=== PATIENT | female | born 1970 | race African-American/Black ===

== ENCOUNTER 2021-01-26 15:38 | Inpatient (IN) | payer MEDICAID ==
[~2021-01-26] VITALS: Ht 160 cm; Wt 142.9 kg
[~2021-01-26 15:38] MED LIST: METFORMIN
[2021-01-26] MEDS ORDERED: ACETAMINOPHEN 325MG TABLET PO ONE (18:30)
[2021-01-26 19:17] LABS: BASOPHILS % 0.7 % (0.0-2.0); EOSINOPHILS % 1.6 % (0.0-5.0); HEMATOCRIT. 46.6 % (36.0-48.0); HEMOGLOBIN. 14.8 g/dL (12.0-16.0); LYMPHOCYTES % 26.5 % (20.0-50.0); MEAN CORPUSCULAR VOLUME 78.9 fL (81.0-99.0); MEAN PLATELET VOLUME 8.8 fl (7.4-10.4); MONOCYTES % 5.5 % (2.0-8.0); NEUTROPHILS % 65.7 % (40.0-76.0); PLATELET 242 x1000/uL (130-400); RED BLOOD CELL COUNT 5.91 mill/uL (4.2-5.4); RED CELL DISTRIBUTION WIDTH 15.5 % (11.6-14.6)
[2021-01-26 19:25] LABS: CHLORIDE 110 mEq/L (98-107)
[2021-01-26 19:28] LABS: D-DIMER 2.33 mg/L FEU (<0.50); PARTIAL THROMBOPLASTIN TIME 28.8 sec (23.4-31.0); PROTHROMBIN TIME 10.8 sec (9.6-11.0)
[2021-01-26] MEDS ORDERED: ENOXAPARIN 120MG/0.8ML SYR SUBCUT ONE (20:00)
[2021-01-26 23:50] VITALS: BP 198/96
[2021-01-27] VITALS (7 sets, daily range): BP systolic 130–197; BP diastolic 48–111
[2021-01-27] MEDS ORDERED: CLON0.1T PO (00:41)
[2021-01-27] MEDS ORDERED: HYDR50TA PO (00:41)
[2021-01-27] MEDS ORDERED: ATOR40TA70 PO (00:41)
[2021-01-27] MEDS ORDERED: ASPI-986 PO (00:41)
[2021-01-27] MEDS ORDERED: ASPI-986 MT (00:41)
[2021-01-27] MEDS ORDERED: LABE200T9 PO (00:41)
[2021-01-27] MEDS ORDERED: DEXTROSE 50% WATER 50ML SYRINGE IV PRN ×2 (01:00)
[2021-01-27] MEDS ORDERED: NALOXONE HCL 0.4MG/ML VIAL IV PRN (02:00)
[2021-01-27] MEDS ORDERED: *PATIENT'S OWN MEDICATION STORAGE XX SCH (06:15)
[2021-01-27] MEDS ORDERED: BLOOD SUGAR DIAGNOSTIC STRIP TEST SCH (07:20)
[2021-01-27] MEDS: BLOOD SUGAR DIAGNOSTIC STRIP TEST SCH ×4 (07:45→21:38)
[2021-01-27] MEDS: INSULIN LISPRO 100 UNITS/ML SUBCUT SCH ×4 (07:46→21:00)
[2021-01-27 08:36] LABS: BASOPHILS % 1.2 % (0.0-2.0); HEMATOCRIT. 39.8 % (36.0-48.0); HEMOGLOBIN. 12.8 g/dL (12.0-16.0); LYMPHOCYTES % 32.3 % (20.0-50.0); MEAN CORPUSCULAR HEMOGLOBIN 25.4 pg (28.0-32.0); MEAN CORPUSCULAR VOLUME 78.7 fL (81.0-99.0); MEAN PLATELET VOLUME 9.2 fl (7.4-10.4); MONOCYTES % 7.8 % (2.0-8.0); NEUTROPHILS % 55.7 % (40.0-76.0); PLATELET 219 x1000/uL (130-400); RED BLOOD CELL COUNT 5.06 mill/uL (4.2-5.4); RED CELL DISTRIBUTION WIDTH 15.2 % (11.6-14.6)
[2021-01-27] MEDS: METOPROLOL TARTRATE 50MG TABLET PO SCH ×2 (08:36→21:37)
[2021-01-27] MEDS: AMLODIPINE 10MG TABLET PO SCH (08:36)
[2021-01-27] MEDS: ASPIRIN 81MG TABLET PO SCH (08:36)
[2021-01-27 08:57] LABS: CHLORIDE 109 mEq/L (98-107)
[2021-01-27] MEDS ORDERED: LISINOPRIL 20MG TABLET PO SCH (09:00)
[2021-01-27] MEDS ORDERED: METFORMIN HCL 500MG TABLET PO ONE (09:00)
[2021-01-27 09:04] LABS: LDL CHOLESTEROL 71 mg/dL (5-100)
[2021-01-27 09:05] LABS: HDL CHOLESTEROL 53 mg/dL (40-59)
[2021-01-27] MEDS: HYDROCODONE/ACETAMINOPHEN 5/325MG TABLET PO PRN (11:21)
[2021-01-27] MEDS: HYDRALAZINE HCL 100MG TABLET PO SCH ×2 (11:38→21:37)
[2021-01-27] MEDS ORDERED: CLONIDINE 0.1MG TABLET PO PRN ×2 (12:30→13:15)
[2021-01-27] MEDS: CLONIDINE 0.1MG TABLET PO SCH ×2 (13:54→21:37)
[2021-01-27] MEDS ORDERED: ENOXAPARIN 100MG/ML SYR SUBCUT NR (17:00)
[2021-01-27] MEDS: LISINOPRIL 20MG TABLET PO SCH (17:03)
[2021-01-27] MEDS: NITROGLYCERIN OINT 1GM/INCH UDPKT TD SCH (17:04)
[2021-01-27] MEDS ORDERED: ENOXAPARIN 40MG/0.4ML SYR SUBCUT SCH (18:00)
[2021-01-27] MEDS: ATORVASTATIN CALCIUM 40MG TABLET PO SCH (21:38)
[2021-01-27] MEDS: INSULIN GLARGINE UD 100 UNITS/ML SYR SUBCUT SCH (21:45)
[2021-01-28] VITALS (8 sets, daily range): BP systolic 109–157; BP diastolic 52–78
[2021-01-28] MEDS: NITROGLYCERIN OINT 1GM/INCH UDPKT TD SCH ×5 (00:56→23:32)
[2021-01-28 04:25] LABS: *AMPHETAMINES SCREEN URINE NEGATIVE (NEGATIVE); *BARBITURATES SCREEN URINE NEGATIVE (NEGATIVE); *BENZODIAZEPINES SCREEN URINE NEGATIVE (NEGATIVE); *COCAINE SCREEN URINE NEGATIVE (NEGATIVE); METHADONE URINE SCREEN NEGATIVE (NEGATIVE); OPIATES URINE SCREEN PRESUMTIVE POSITIVE (NEGATIVE)
[2021-01-28 04:26] LABS: CANNABINOID URINE SCREEN NEGATIVE (NEGATIVE); PHENCYCLIDINE URINE SCREEN NEGATIVE (NEGATIVE)
[2021-01-28] MEDS: BLOOD SUGAR DIAGNOSTIC STRIP TEST SCH ×4 (06:23→21:32)
[2021-01-28] MEDS: HYDRALAZINE HCL 100MG TABLET PO SCH ×3 (06:23→21:31)
[2021-01-28] MEDS: CLONIDINE 0.1MG TABLET PO SCH ×3 (06:23→21:32)
[2021-01-28] MEDS: INSULIN LISPRO 100 UNITS/ML SUBCUT SCH ×4 (07:26→21:36)
[2021-01-28 07:29] LABS: EOSINOPHILS % 3.5 % (0.0-5.0); HEMATOCRIT. 40.6 % (36.0-48.0); HEMOGLOBIN. 12.9 g/dL (12.0-16.0); LYMPHOCYTES % 35.7 % (20.0-50.0); MEAN CORPUSCULAR VOLUME 78.9 fL (81.0-99.0); MEAN PLATELET VOLUME 8.8 fl (7.4-10.4); MONOCYTES % 6.6 % (2.0-8.0); NEUTROPHILS % 53.2 % (40.0-76.0); PLATELET 249 x1000/uL (130-400); RED BLOOD CELL COUNT 5.14 mill/uL (4.2-5.4); RED CELL DISTRIBUTION WIDTH 15.5 % (11.6-14.6)
[2021-01-28 08:08] LABS: CHLORIDE 108 mEq/L (98-107)
[2021-01-28 08:18] LABS: CREATINE KINASE 111 IU/L (26-192)
[2021-01-28] MEDS: METOPROLOL TARTRATE 50MG TABLET PO SCH ×2 (08:22→21:32)
[2021-01-28 08:23] LABS: CREATINE KINASE MB FRACTION < 1.0 ng/mL (0.5-3.6)
[2021-01-28] MEDS: AMLODIPINE 10MG TABLET PO SCH (08:23)
[2021-01-28] MEDS: ASPIRIN 81MG TABLET PO SCH ×2 (08:23→09:40)
[2021-01-28] MEDS: LISINOPRIL 20MG TABLET PO SCH ×2 (08:23→21:32)
[2021-01-28] MEDS ORDERED: ENOXAPARIN 100MG/ML SYR SUBCUT NR (17:00)
[2021-01-28] MEDS: ATORVASTATIN CALCIUM 40MG TABLET PO SCH (21:31)
[2021-01-28] MEDS: INSULIN GLARGINE UD 100 UNITS/ML SYR SUBCUT SCH (21:36)
[2021-01-29] VITALS (7 sets, daily range): BP systolic 104–150; BP diastolic 52–66
[2021-01-29] MEDS: HYDRALAZINE HCL 100MG TABLET PO SCH ×3 (05:55→21:55)
[2021-01-29] MEDS: CLONIDINE 0.1MG TABLET PO SCH ×3 (05:55→21:54)
[2021-01-29] MEDS: BLOOD SUGAR DIAGNOSTIC STRIP TEST SCH ×4 (05:57→21:55)
[2021-01-29] MEDS: NITROGLYCERIN OINT 1GM/INCH UDPKT TD SCH ×4 (05:57→23:49)
[2021-01-29 06:33] LABS: BASOPHILS % 0.8 % (0.0-2.0); EOSINOPHILS % 2.4 % (0.0-5.0); HEMATOCRIT. 37.1 % (36.0-48.0); MEAN CORPUSCULAR HEMOGLOBIN 25.8 pg (28.0-32.0); MEAN CORPUSCULAR VOLUME 79.5 fL (81.0-99.0); MEAN PLATELET VOLUME 9.2 fl (7.4-10.4); MONOCYTES % 8.4 % (2.0-8.0); NEUTROPHILS % 66.4 % (40.0-76.0); PLATELET 218 x1000/uL (130-400); RED BLOOD CELL COUNT 4.67 mill/uL (4.2-5.4); RED CELL DISTRIBUTION WIDTH 15.2 % (11.6-14.6)
[2021-01-29] MEDS: AMLODIPINE 10MG TABLET PO SCH (07:47)
[2021-01-29] MEDS: LISINOPRIL 20MG TABLET PO SCH (07:47)
[2021-01-29] MEDS: ASPIRIN 81MG TABLET PO SCH (07:47)
[2021-01-29] MEDS: INSULIN LISPRO 100 UNITS/ML SUBCUT SCH ×4 (07:47→21:54)
[2021-01-29] MEDS: METOPROLOL TARTRATE 50MG TABLET PO SCH ×2 (07:47→21:55)
[2021-01-29] MEDS ORDERED: LIDOCAINE HCL 1% 10 MG/ML 10ML VIAL ONE (07:48)
[2021-01-29] MEDS ORDERED: IODIXANOL 320MG/ML 100 ML BOTTLE IV ONE (07:48)
[2021-01-29] MEDS ORDERED: ASPIRIN/SOD BICARB/CITRIC ACID 324MG TAB EFF ONE (07:48)
[2021-01-29] MEDS ORDERED: MIDAZOLAM HCL 2 MG/2 ML VIAL ONE (08:06)
[2021-01-29] MEDS ORDERED: FENTANYL CITRATE/PF 50MCG/ML 2ML VIAL ONE (08:06)
[2021-01-29] MEDS ORDERED: HEPARIN SODIUM 1,000 UNIT/1ML VIAL IV ONE (08:11)
[2021-01-29] MEDS ORDERED: NITROGLYCERIN 50MCG/ML 10ML VIAL (CATH LAB) IV ONE (08:11)
[2021-01-29] MEDS ORDERED: NICARDIPINE 100MCG/ML 10ML VIAL (CATH LAB) IV ONE (08:11)
[2021-01-29] MEDS ORDERED: MORPHINE SULFATE 2 MG/ML CPJ (NOT FOR IM USE) IV PRN (08:45)
[2021-01-29] MEDS ORDERED: ONDANSETRON HCL 4MG/2ML INJ IV PRN (08:45)
[2021-01-29] MEDS ORDERED: ACETAMINOPHEN 325MG TABLET PO PRN (08:45)
[2021-01-29] MEDS ORDERED: ATROPINE SULFATE 1MG/10ML SYR IV PRN (08:45)
[2021-01-29] MEDS ORDERED: SODIUM CHLORIDE 0.45% 1,000 ML IV ONE (08:45)
[2021-01-29] MEDS: HYDROCODONE/ACETAMINOPHEN 5/325MG TABLET PO PRN ×2 (18:20→23:48)
[2021-01-29] MEDS: ATORVASTATIN CALCIUM 40MG TABLET PO SCH (21:52)
[2021-01-29] MEDS: INSULIN GLARGINE UD 100 UNITS/ML SYR SUBCUT SCH (21:54)
[2021-01-30 04:00] VITALS: BP 136/70
[2021-01-30] MEDS: HYDROCODONE/ACETAMINOPHEN 5/325MG TABLET PO PRN (06:12)
[2021-01-30] MEDS: CLONIDINE 0.1MG TABLET PO SCH (06:12)
[2021-01-30] MEDS: HYDRALAZINE HCL 100MG TABLET PO SCH (06:12)
[2021-01-30] MEDS: NITROGLYCERIN OINT 1GM/INCH UDPKT TD SCH (06:12)
[2021-01-30 07:26] LABS: EOSINOPHILS % 2.3 % (0.0-5.0); HEMATOCRIT. 38.8 % (36.0-48.0); HEMOGLOBIN. 12.7 g/dL (12.0-16.0); MEAN CORPUSCULAR HEMOGLOBIN 25.9 pg (28.0-32.0); MEAN CORPUSCULAR VOLUME 79.1 fL (81.0-99.0); MEAN PLATELET VOLUME 9.2 fl (7.4-10.4); MONOCYTES % 7.9 % (2.0-8.0); NEUTROPHILS % 64.8 % (40.0-76.0); PLATELET 193 x1000/uL (130-400); RED BLOOD CELL COUNT 4.91 mill/uL (4.2-5.4); RED CELL DISTRIBUTION WIDTH 15.2 % (11.6-14.6)
[2021-01-30 07:28] LABS: CHLORIDE 111 mEq/L (98-107)
[2021-01-30] MEDS: INSULIN LISPRO 100 UNITS/ML SUBCUT SCH (07:36)
[2021-01-30] MEDS: BLOOD SUGAR DIAGNOSTIC STRIP TEST SCH (07:36)
[2021-01-30 08:00] VITALS: BP 118/43
[2021-01-30] MEDS: METOPROLOL TARTRATE 50MG TABLET PO SCH (08:36)
[2021-01-30] MEDS: ASPIRIN 81MG TABLET PO SCH (08:40)
[2021-01-30] MEDS: AMLODIPINE 10MG TABLET PO SCH (08:40)
[2021-01-30] MEDS ORDERED: CLONIDINE 0.1MG TABLET PO SCH (10:15)
[2021-01-30 10:26] VITALS: BP 109/58
== END 2021-01-30 11:30 | disposition home or self-care (01) | DRG 190 ==
LOC: ER 15:38 → 6WST 20:31 → ENRESERV 22:56
PROVIDERS: ADMIT Internal Medicine; ATTEND Internal Medicine
PROC: B2111ZZ Fluoroscopy of Multiple Coronary Arteries using Low Osmolar Contrast (ICD-10-PCS; principal; 2021-01-29)
PROC: 4A023N7 Measurement of Cardiac Sampling and Pressure, Left Heart, Percutaneous Approach (ICD-10-PCS; 2021-01-29)
DX: I21.4 Non-ST elevation (NSTEMI) myocardial infarction (principal); I69.354 Hemiplegia and hemiparesis following cerebral infarction affecting left non-dominant side; E11.9 Type 2 diabetes mellitus without complications; E87.8 Other disorders of electrolyte and fluid balance, not elsewhere classified; E66.9 Obesity, unspecified; Z20.822 Contact with and (suspected) exposure to COVID-19; F41.9 Anxiety disorder, unspecified; R79.89 Other specified abnormal findings of blood chemistry; I25.10 Atherosclerotic heart disease of native coronary artery without angina pectoris; E78.5 Hyperlipidemia, unspecified; Z87.891 Personal history of nicotine dependence; Z79.82 Long term (current) use of aspirin; Z79.899 Other long term (current) drug therapy; Q25.0 Patent ductus arteriosus; I25.2 Old myocardial infarction; Z68.43 Body mass index [BMI] 50.0-59.9, adult; I10 Essential (primary) hypertension
CPT/HCPCS: 36415; 71045; 78582; 80048; 80053; 80061; 80305; 82550; 82553; 82962; 83036; 83735; 83880; 84443; 84484; 85025; 85379; 87426; 93005; 93306; 93458; 93970; 99285; A9558; C1769; C1887; C1893; J1644; J1650; J1815; J2250; J3010; J3490; Q9967

== ENCOUNTER 2021-08-27 10:55 | Emergency (ER) | payer MEDICAID ==
[~2021-08-27] VITALS: Ht 162.6 cm; Wt 137.0 kg
[~2021-08-27 10:55] MED LIST changes: +ASPI-986 PO; +ATOR40TA70 PO; +CLON0.1T PO; +LABE200T9 PO
[2021-08-27 15:11] VITALS: BP 181/85
[2021-08-27] MEDS ORDERED: KETOROLAC 60MG/2ML VIAL IM STA (15:11)
[2021-08-27 15:38] LABS: EOSINOPHILS % 1.2 % (0.0-5.0); HEMATOCRIT. 42.1 % (36.0-48.0); HEMOGLOBIN. 13.4 g/dL (12.0-16.0); LYMPHOCYTES % 31.3 % (20.0-50.0); MEAN CORPUSCULAR HEMOGLOBIN 25.4 pg (28.0-32.0); MEAN CORPUSCULAR VOLUME 79.7 fL (81.0-99.0); MEAN PLATELET VOLUME 8.7 fl (7.4-10.4); MONOCYTES % 8.9 % (2.0-8.0); NEUTROPHILS % 57.6 % (40.0-76.0); PLATELET 215 x1000/uL (130-400); RED BLOOD CELL COUNT 5.29 mill/uL (4.2-5.4); RED CELL DISTRIBUTION WIDTH 14.8 % (11.6-14.6)
[2021-08-27 15:45] LABS: CHLORIDE 101 mEq/L (98-107)
[2021-08-27 15:46] LABS: PROTHROMBIN TIME 10.6 sec (9.6-11.0)
[2021-08-27 19:27] LABS: CLARITY URINE CLEAR (CLEAR); COLOR URINE YELLOW (YELLOW); KETONES URINE NEGATIVE (NEGATIVE); LEUKOCYTE ESTERASE URINE NEGATIVE (NEGATIVE); NITRITE URINE NEGATIVE (NEGATIVE); OCCULT BLOOD URINE NEGATIVE (NEGATIVE); PROTEIN URINE 1+ (NEGATIVE); SPECIFIC GRAVITY URINE 1.019 (1.005-1.030); UROBILINOGEN URINE 0.2 E.U./dL (0.2-1.0)
[2021-08-27] MEDS ORDERED: NAPR500T7 MT (19:44)
== END 2021-08-27 20:15 | disposition home or self-care (01) ==
LOC: ER 10:55
DX: M54.9 Dorsalgia, unspecified (principal); I10 Essential (primary) hypertension; J45.909 Unspecified asthma, uncomplicated; E11.9 Type 2 diabetes mellitus without complications
CPT/HCPCS: 36415; 74176; 80053; 81003; 81025; 83690; 85025; 85610; 96372; 99284; J1885

== ENCOUNTER 2021-09-10 19:55 | Inpatient (IN) | payer MEDICAID ==
[~2021-09-10] VITALS: Ht 163.8 cm; Wt 135.6 kg
[~2021-09-10 19:55] MED LIST changes: +NAPR500T7 MT
[2021-09-10] MEDS ORDERED: IOHEXOL-350 100 ML BOTTLE ONE (20:45)
[2021-09-10 21:11] LABS: BASOPHILS % 0.7 % (0.0-2.0); EOSINOPHILS % 1.3 % (0.0-5.0); HEMATOCRIT. 41.8 % (36.0-48.0); HEMOGLOBIN. 13.6 g/dL (12.0-16.0); LYMPHOCYTES % 18.1 % (20.0-50.0); MEAN CORPUSCULAR HEMOGLOBIN 25.5 pg (28.0-32.0); MEAN CORPUSCULAR VOLUME 78.5 fL (81.0-99.0); MEAN PLATELET VOLUME 8.7 fl (7.4-10.4); MONOCYTES % 5.6 % (2.0-8.0); NEUTROPHILS % 74.3 % (40.0-76.0); PLATELET 248 x1000/uL (130-400); RED BLOOD CELL COUNT 5.32 mill/uL (4.2-5.4); RED CELL DISTRIBUTION WIDTH 14.5 % (11.6-14.6)
[2021-09-10] MEDS ORDERED: ASPIRIN 325MG EC TABLET PO ONE (21:15)
[2021-09-10] MEDS ORDERED: ATORVASTATIN CALCIUM 40MG TABLET PO ONE (21:15)
[2021-09-10 21:17] LABS: CLARITY URINE CLEAR (CLEAR); COLOR URINE YELLOW (YELLOW); KETONES URINE NEGATIVE (NEGATIVE); LEUKOCYTE ESTERASE URINE NEGATIVE (NEGATIVE); NITRITE URINE NEGATIVE (NEGATIVE); OCCULT BLOOD URINE NEGATIVE (NEGATIVE); PH URINE 6.5 (4.5-8.0); PROTEIN URINE TRACE (NEGATIVE); SPECIFIC GRAVITY URINE 1.015 (1.005-1.030); UROBILINOGEN URINE 0.2 E.U./dL (0.2-1.0)
[2021-09-10 21:23] LABS: CHLORIDE 101 mEq/L (98-107)
[2021-09-10 21:31] LABS: HCG SCREEN NEGATIVE
[2021-09-10 21:35] LABS: CREATINE KINASE 95 IU/L (26-192); ETHANOL BLOOD < 10 mg/dL
[2021-09-10 21:51] LABS: *AMPHETAMINES SCREEN URINE NEGATIVE (NEGATIVE); *BARBITURATES SCREEN URINE NEGATIVE (NEGATIVE); *BENZODIAZEPINES SCREEN URINE NEGATIVE (NEGATIVE); *COCAINE SCREEN URINE NEGATIVE (NEGATIVE); CANNABINOID URINE SCREEN NEGATIVE (NEGATIVE); METHADONE URINE SCREEN NEGATIVE (NEGATIVE); OPIATES URINE SCREEN NEGATIVE (NEGATIVE); PHENCYCLIDINE URINE SCREEN NEGATIVE (NEGATIVE)
[2021-09-11 03:10] VITALS: BP 141/60
[2021-09-11] MEDS ORDERED: ALBU4TAB6 INH (04:14)
[2021-09-11] MEDS ORDERED: FAMO-135 PO (04:14)
[2021-09-11] MEDS ORDERED: ESCI10TA PO (04:14)
[2021-09-11] MEDS ORDERED: LOSA100T32 PO (04:14)
[2021-09-11] MEDS ORDERED: CLON-457 PO (04:14)
[2021-09-11] MEDS ORDERED: TIOT18CA3 INH (04:14)
[2021-09-11] MEDS ORDERED: METF-416 PO (04:14)
[2021-09-11] MEDS ORDERED: HYDR12.54 PO (04:14)
[2021-09-11] MEDS ORDERED: AMLO10TA4 PO (04:14)
[2021-09-11 04:43] VITALS: BP 141/60
[2021-09-11] MEDS ORDERED: DEXTROSE 50% WATER 50ML SYRINGE IV PRN (05:15)
[2021-09-11] MEDS ORDERED: *PATIENT'S OWN MEDICATION STORAGE XX SCH (06:15)
[2021-09-11] MEDS: BLOOD SUGAR DIAGNOSTIC STRIP TEST SCH ×4 (06:23→21:00)
[2021-09-11] MEDS: INSULIN LISPRO 100 UNITS/ML SUBCUT SCH ×4 (08:04→23:18)
[2021-09-11 08:05] VITALS: BP 169/80
[2021-09-11] MEDS ORDERED: ALBUTEROL (0.083%) 2.5MG/3ML NEB HHN PRN (09:00)
[2021-09-11] MEDS: CLONIDINE 0.1MG TABLET PO SCH ×2 (09:30→16:15)
[2021-09-11] MEDS: METFORMIN HCL 500MG TABLET PO SCH ×2 (09:30→16:15)
[2021-09-11] MEDS ORDERED: HYDROCODONE/ACETAMINOPHEN 10/325MG TABLET PO PRN (09:30)
[2021-09-11] MEDS: SPIRIVA RESPIMAT 2.5MCG/ACTUATION ORI SCH (09:30)
[2021-09-11] MEDS: AMLODIPINE 10MG TABLET PO SCH (09:31)
[2021-09-11] MEDS: LOSARTAN POTASSIUM 100 MG TABLET PO SCH (09:31)
[2021-09-11] MEDS: FAMOTIDINE 20MG TABLET PO SCH (09:31)
[2021-09-11] MEDS: CITALOPRAM HYDROBROMIDE 10MG TABLET PO SCH (09:31)
[2021-09-11] MEDS: INSULIN GLARGINE 100 UNITS/ML SUBCUT SCH ×2 (09:38→23:19)
[2021-09-11 10:27] LABS: HEMATOCRIT 43.5 % (36.0-48.0); HEMOGLOBIN 13.9 g/dL (12.0-16.0); MEAN CORPUSCULAR HEMOGLOBIN 25.3 pg (28.0-32.0); MEAN CORPUSCULAR VOLUME 79.2 fL (81.0-99.0); PLATELET 219 x1000/uL (130-400); RED CELL DISTRIBUTION WIDTH 14.8 % (11.6-14.6)
[2021-09-11 10:35] LABS: CHLORIDE 103 mEq/L (98-107)
[2021-09-11 10:42] LABS: HDL CHOLESTEROL 48 mg/dL (40-59); LDL CHOLESTEROL 66 mg/dL (5-100)
[2021-09-11 11:43] VITALS: BP 105/52
[2021-09-11] MEDS ORDERED: NALOXONE HCL 0.4MG/ML VIAL IV PRN (12:15)
[2021-09-11] MEDS ORDERED: ONDANSETRON HCL 4MG/2ML INJ IV PRN (12:15)
[2021-09-11 15:36] VITALS: BP 141/63
[2021-09-11 20:00] VITALS: BP 167/76
[2021-09-11] MEDS: ATORVASTATIN CALCIUM 40MG TABLET PO SCH (23:20)
[2021-09-12] VITALS: BP 137/52
[2021-09-12 03:58] VITALS: BP 114/82
[2021-09-12] MEDS: BLOOD SUGAR DIAGNOSTIC STRIP TEST SCH ×4 (05:43→21:07)
[2021-09-12] MEDS: INSULIN LISPRO 100 UNITS/ML SUBCUT SCH ×4 (07:50→21:23)
[2021-09-12 07:55] LABS: BASOPHILS % 0.6 % (0.0-2.0); EOSINOPHILS % 3.2 % (0.0-5.0); HEMATOCRIT. 42.1 % (36.0-48.0); HEMOGLOBIN. 13.6 g/dL (12.0-16.0); LYMPHOCYTES % 14.9 % (20.0-50.0); MEAN CORPUSCULAR HEMOGLOBIN 25.6 pg (28.0-32.0); MEAN CORPUSCULAR VOLUME 79.1 fL (81.0-99.0); MEAN PLATELET VOLUME 9.4 fl (7.4-10.4); MONOCYTES % 6.8 % (2.0-8.0); NEUTROPHILS % 74.5 % (40.0-76.0); PLATELET 266 x1000/uL (130-400); RED BLOOD CELL COUNT 5.31 mill/uL (4.2-5.4); RED CELL DISTRIBUTION WIDTH 14.8 % (11.6-14.6)
[2021-09-12 08:45] VITALS: BP 136/78
[2021-09-12] MEDS ORDERED: ACETAMINOPHEN 325MG TABLET PO PRN (09:45)
[2021-09-12] MEDS: METFORMIN HCL 500MG TABLET PO SCH ×2 (10:13→17:45)
[2021-09-12] MEDS: FAMOTIDINE 20MG TABLET PO SCH (10:13)
[2021-09-12] MEDS: LOSARTAN POTASSIUM 100 MG TABLET PO SCH (10:13)
[2021-09-12] MEDS: AMLODIPINE 10MG TABLET PO SCH (10:14)
[2021-09-12] MEDS: CLONIDINE 0.1MG TABLET PO SCH ×2 (10:14→17:45)
[2021-09-12] MEDS: CITALOPRAM HYDROBROMIDE 10MG TABLET PO SCH (10:14)
[2021-09-12] MEDS: SPIRIVA RESPIMAT 2.5MCG/ACTUATION ORI SCH (10:15)
[2021-09-12] MEDS: INSULIN GLARGINE 100 UNITS/ML SUBCUT SCH ×2 (10:15→21:22)
[2021-09-12] MEDS: ASPIRIN 81MG EC TABLET PO SCH (12:27)
[2021-09-12 12:30] VITALS: BP 129/67
[2021-09-12 16:46] VITALS: BP 117/49
[2021-09-12 20:00] VITALS: BP 113/62
[2021-09-12] MEDS: ATORVASTATIN CALCIUM 40MG TABLET PO SCH (21:20)
[2021-09-12] MEDS: HYDROCODONE/ACETAMINOPHEN 5/325MG TABLET PO PRN (21:20)
[2021-09-13] VITALS: BP 124/56
[2021-09-13 04:00] VITALS: BP 126/59
[2021-09-13] MEDS: BLOOD SUGAR DIAGNOSTIC STRIP TEST SCH ×4 (06:42→20:45)
[2021-09-13 07:25] LABS: BASOPHILS % 0.7 % (0.0-2.0); EOSINOPHILS % 3.6 % (0.0-5.0); HEMATOCRIT. 41.6 % (36.0-48.0); HEMOGLOBIN. 13.5 g/dL (12.0-16.0); LYMPHOCYTES % 20.9 % (20.0-50.0); MEAN CORPUSCULAR HEMOGLOBIN 25.5 pg (28.0-32.0); MEAN CORPUSCULAR VOLUME 78.9 fL (81.0-99.0); MEAN PLATELET VOLUME 9.2 fl (7.4-10.4); MONOCYTES % 7.2 % (2.0-8.0); NEUTROPHILS % 67.6 % (40.0-76.0); PLATELET 267 x1000/uL (130-400); RED BLOOD CELL COUNT 5.27 mill/uL (4.2-5.4); RED CELL DISTRIBUTION WIDTH 15.1 % (11.6-14.6)
[2021-09-13] MEDS: INSULIN LISPRO 100 UNITS/ML SUBCUT SCH ×4 (07:50→20:45)
[2021-09-13 08:00] VITALS: BP 123/56
[2021-09-13] MEDS: ASPIRIN 81MG EC TABLET PO SCH (09:33)
[2021-09-13] MEDS: CLONIDINE 0.1MG TABLET PO SCH ×2 (09:33→17:46)
[2021-09-13] MEDS: AMLODIPINE 10MG TABLET PO SCH (09:33)
[2021-09-13] MEDS: CITALOPRAM HYDROBROMIDE 10MG TABLET PO SCH (09:33)
[2021-09-13] MEDS: SPIRIVA RESPIMAT 2.5MCG/ACTUATION ORI SCH (09:33)
[2021-09-13] MEDS: FAMOTIDINE 20MG TABLET PO SCH (09:33)
[2021-09-13] MEDS: CLOPIDOGREL 75MG TABLET PO SCH (09:33)
[2021-09-13] MEDS: LOSARTAN POTASSIUM 100 MG TABLET PO SCH (09:34)
[2021-09-13] MEDS: INSULIN GLARGINE 100 UNITS/ML SUBCUT SCH ×2 (11:19→21:12)
[2021-09-13] MEDS ORDERED: SODIUM CHLORIDE 0.9% 1,000 ML IV ONE (11:30)
[2021-09-13 12:00] VITALS: BP 115/55
[2021-09-13 16:00] VITALS: BP 108/54
[2021-09-13] MEDS ORDERED: THROAT LOZENGES-BENZOCAINE/MENTH/CETYLPYRD CL LOZENGES MM PRN (18:15)
[2021-09-13 20:00] VITALS: BP 143/83
[2021-09-13] MEDS: FLUTICASONE PROPIONATE 50MCG/SPRAY BOTTLE BOTHNSTRLS SCH (21:06)
[2021-09-13] MEDS: HYDROCODONE/ACETAMINOPHEN 5/325MG TABLET PO PRN (21:07)
[2021-09-13] MEDS: ATORVASTATIN CALCIUM 40MG TABLET PO SCH (21:07)
[2021-09-14] VITALS: BP 129/62
[2021-09-14 04:00] VITALS: BP 141/54
[2021-09-14] MEDS: BLOOD SUGAR DIAGNOSTIC STRIP TEST SCH ×4 (07:27→21:32)
[2021-09-14] MEDS: INSULIN LISPRO 100 UNITS/ML SUBCUT SCH ×4 (07:27→21:00)
[2021-09-14 08:00] VITALS: BP 160/87
[2021-09-14 08:37] LABS: BASOPHILS % 0.7 % (0.0-2.0); EOSINOPHILS % 2.1 % (0.0-5.0); HEMATOCRIT. 41.6 % (36.0-48.0); HEMOGLOBIN. 13.2 g/dL (12.0-16.0); LYMPHOCYTES % 21.1 % (20.0-50.0); MEAN CORPUSCULAR HEMOGLOBIN 25.3 pg (28.0-32.0); MEAN CORPUSCULAR VOLUME 79.7 fL (81.0-99.0); MEAN PLATELET VOLUME 9.3 fl (7.4-10.4); MONOCYTES % 7.9 % (2.0-8.0); NEUTROPHILS % 68.2 % (40.0-76.0); PLATELET 260 x1000/uL (130-400); RED BLOOD CELL COUNT 5.22 mill/uL (4.2-5.4); RED CELL DISTRIBUTION WIDTH 15.1 % (11.6-14.6)
[2021-09-14] MEDS: FLUTICASONE PROPIONATE 50MCG/SPRAY BOTTLE BOTHNSTRLS SCH ×2 (08:51→22:03)
[2021-09-14] MEDS: AMLODIPINE 10MG TABLET PO SCH (08:51)
[2021-09-14] MEDS: CLONIDINE 0.1MG TABLET PO SCH (08:51)
[2021-09-14] MEDS: CLOPIDOGREL 75MG TABLET PO SCH (08:51)
[2021-09-14] MEDS: FAMOTIDINE 20MG TABLET PO SCH (08:51)
[2021-09-14] MEDS: SPIRIVA RESPIMAT 2.5MCG/ACTUATION ORI SCH (08:51)
[2021-09-14] MEDS: CITALOPRAM HYDROBROMIDE 10MG TABLET PO SCH (08:51)
[2021-09-14] MEDS: ASPIRIN 81MG EC TABLET PO SCH (08:51)
[2021-09-14] MEDS: CLONIDINE 0.2MG TABLET PO SCH ×4 (09:40→22:03)
[2021-09-14] MEDS: INSULIN GLARGINE 100 UNITS/ML SUBCUT SCH ×2 (11:13→22:04)
[2021-09-14 12:00] VITALS: BP 131/70
[2021-09-14 20:00] VITALS: BP 137/76
[2021-09-14] MEDS: ATORVASTATIN CALCIUM 40MG TABLET PO SCH (22:03)
[2021-09-15] VITALS: BP 111/72
[2021-09-15 04:00] VITALS: BP 138/71
[2021-09-15] MEDS: CLONIDINE 0.2MG TABLET PO SCH ×3 (06:12→21:24)
[2021-09-15] MEDS: BLOOD SUGAR DIAGNOSTIC STRIP TEST SCH ×4 (06:20→21:16)
[2021-09-15] MEDS: INSULIN LISPRO 100 UNITS/ML SUBCUT SCH ×4 (07:50→21:00)
[2021-09-15 08:20] VITALS: BP 149/69
[2021-09-15] MEDS: FLUTICASONE PROPIONATE 50MCG/SPRAY BOTTLE BOTHNSTRLS SCH ×2 (10:05→21:25)
[2021-09-15] MEDS: SPIRIVA RESPIMAT 2.5MCG/ACTUATION ORI SCH (10:05)
[2021-09-15] MEDS: FAMOTIDINE 20MG TABLET PO SCH (10:05)
[2021-09-15] MEDS: CLOPIDOGREL 75MG TABLET PO SCH (10:05)
[2021-09-15] MEDS: ASPIRIN 81MG EC TABLET PO SCH (10:06)
[2021-09-15] MEDS: AMLODIPINE 10MG TABLET PO SCH (10:06)
[2021-09-15] MEDS: CITALOPRAM HYDROBROMIDE 10MG TABLET PO SCH (10:06)
[2021-09-15] MEDS: INSULIN GLARGINE 100 UNITS/ML SUBCUT SCH ×2 (10:13→21:20)
[2021-09-15 10:58] LABS: BASOPHILS % 0.9 % (0.0-2.0); HEMATOCRIT. 41.1 % (36.0-48.0); LYMPHOCYTES % 23.2 % (20.0-50.0); MEAN CORPUSCULAR HEMOGLOBIN 25.3 pg (28.0-32.0); MEAN CORPUSCULAR VOLUME 80.2 fL (81.0-99.0); MEAN PLATELET VOLUME 8.9 fl (7.4-10.4); MONOCYTES % 7.8 % (2.0-8.0); NEUTROPHILS % 66.1 % (40.0-76.0); PLATELET 258 x1000/uL (130-400); RED BLOOD CELL COUNT 5.12 mill/uL (4.2-5.4); RED CELL DISTRIBUTION WIDTH 14.9 % (11.6-14.6)
[2021-09-15 11:17] LABS: CHLORIDE 106 mEq/L (98-107)
[2021-09-15 11:22] LABS: PHOSPHORUS 2.5 mg/dL (2.5-4.9)
[2021-09-15 12:00] VITALS: BP 132/68
[2021-09-15 16:00] VITALS: BP 129/69
[2021-09-15 20:00] VITALS: BP 142/69
[2021-09-15] MEDS: ATORVASTATIN CALCIUM 40MG TABLET PO SCH (21:24)
[2021-09-16] VITALS: BP 144/72
[2021-09-16 04:00] VITALS: BP 157/76
[2021-09-16] MEDS: CLONIDINE 0.2MG TABLET PO SCH (05:44)
[2021-09-16 07:10] LABS: BASOPHILS % 0.9 % (0.0-2.0); EOSINOPHILS % 1.3 % (0.0-5.0); HEMATOCRIT. 41.7 % (36.0-48.0); HEMOGLOBIN. 13.2 g/dL (12.0-16.0); LYMPHOCYTES % 21.6 % (20.0-50.0); MEAN CORPUSCULAR HEMOGLOBIN 25.3 pg (28.0-32.0); MEAN CORPUSCULAR VOLUME 79.8 fL (81.0-99.0); MEAN PLATELET VOLUME 9.3 fl (7.4-10.4); MONOCYTES % 7.2 % (2.0-8.0); PLATELET 276 x1000/uL (130-400); RED BLOOD CELL COUNT 5.23 mill/uL (4.2-5.4); RED CELL DISTRIBUTION WIDTH 14.6 % (11.6-14.6)
[2021-09-16] MEDS: BLOOD SUGAR DIAGNOSTIC STRIP TEST SCH ×2 (07:45→13:11)
[2021-09-16] MEDS: INSULIN LISPRO 100 UNITS/ML SUBCUT SCH ×2 (07:45→12:50)
[2021-09-16 08:00] VITALS: BP 156/78
[2021-09-16 08:04] LABS: CHLORIDE 105 mEq/L (98-107)
[2021-09-16 08:14] LABS: PHOSPHORUS 2.9 mg/dL (2.5-4.9)
[2021-09-16] MEDS: CITALOPRAM HYDROBROMIDE 10MG TABLET PO SCH (10:00)
[2021-09-16] MEDS: FAMOTIDINE 20MG TABLET PO SCH (10:00)
[2021-09-16] MEDS ORDERED: LOSARTAN POTASSIUM 100 MG TABLET PO SCH (10:00)
[2021-09-16] MEDS: CLOPIDOGREL 75MG TABLET PO SCH (10:00)
[2021-09-16] MEDS: FLUTICASONE PROPIONATE 50MCG/SPRAY BOTTLE BOTHNSTRLS SCH (10:00)
[2021-09-16] MEDS: ASPIRIN 81MG EC TABLET PO SCH (10:00)
[2021-09-16] MEDS: SPIRIVA RESPIMAT 2.5MCG/ACTUATION ORI SCH (10:00)
[2021-09-16] MEDS: INSULIN GLARGINE 100 UNITS/ML SUBCUT SCH (10:01)
[2021-09-16] MEDS: AMLODIPINE 10MG TABLET PO SCH (10:01)
[2021-09-16] MEDS ORDERED: HYDR100T26 PO (10:47)
[2021-09-16] MEDS ORDERED: BLOO1KIT74 TP (10:47)
[2021-09-16] MEDS ORDERED: CLOP75TA15 PO (10:47)
[2021-09-16] MEDS ORDERED: LOSA100T3 PO (10:47)
[2021-09-16] MEDS ORDERED: LANTUSUD SUBCUT (10:47)
[2021-09-16] MEDS ORDERED: LANC-493 TP (10:47)
[2021-09-16] MEDS ORDERED: BLOO-1465 MT (10:47)
[2021-09-16] MEDS ORDERED: INSLIS SUBCUT (10:47)
[2021-09-16 12:00] VITALS: BP 128/63
[2021-09-16 13:12] VITALS: BP 128/65
[2021-09-16] MEDS ORDERED: HYDRALAZINE HCL 100MG TABLET PO SCH (21:00)
== END 2021-09-16 14:49 | disposition home health service (06) | DRG 45 ==
LOC: ER 19:55 → 6WST 23:55 → ENRESERV 09-11 02:16
PROVIDERS: ADMIT Internal Medicine; ATTEND Internal Medicine
DX: I63.9 Cerebral infarction, unspecified (principal); N17.9 Acute kidney failure, unspecified; I31.3 Pericardial effusion (noninflammatory); I11.9 Hypertensive heart disease without heart failure; I69.354 Hemiplegia and hemiparesis following cerebral infarction affecting left non-dominant side; Z68.43 Body mass index [BMI] 50.0-59.9, adult; F32.A Depression, unspecified; F41.1 Generalized anxiety disorder; I25.10 Atherosclerotic heart disease of native coronary artery without angina pectoris; E78.5 Hyperlipidemia, unspecified; R29.810 Facial weakness; E66.01 Morbid (severe) obesity due to excess calories; I35.1 Nonrheumatic aortic (valve) insufficiency; F10.21 Alcohol dependence, in remission; E11.65 Type 2 diabetes mellitus with hyperglycemia; N14.1 Nephropathy induced by other drugs, medicaments and biological substances; T50.8X5A Adverse effect of diagnostic agents, initial encounter; R00.1 Bradycardia, unspecified; Y92.238 Other place in hospital as the place of occurrence of the external cause; J45.909 Unspecified asthma, uncomplicated; Z79.899 Other long term (current) drug therapy; Z79.82 Long term (current) use of aspirin; Z82.49 Family history of ischemic heart disease and other diseases of the circulatory system; Z71.3 Dietary counseling and surveillance
CPT/HCPCS: 36415; 70496; 70498; 70551; 71045; 76770; 80048; 80053; 80061; 80305; 80320; 81003; 82550; 82962; 83036; 83735; 84100; 84484; 84703; 85025; 85027; 92523; 93005; 93306; 93970; 97112; 97116; 97161; 97166; 97530; 99291; J1815; J2405; Q9967; G0480

== ENCOUNTER 2022-01-29 13:55 | Emergency (ER) | payer MEDICAID ==
[~2022-01-29] VITALS: Ht 165.1 cm; Wt 129.0 kg
[~2022-01-29 13:55] MED LIST changes: +ALBU4TAB6 INH; +AMLO10TA4 PO; +BLOO-1465 MT; +BLOO1KIT74 TP; -CLON0.1T PO; +CLOP75TA15 PO; +ESCI10TA PO; +FAMO-135 PO; +HYDR100T26 PO; +HYDR12.54 PO; +INSLIS SUBCUT; -LABE200T9 PO; +LANC-493 TP; +LANTUSUD SUBCUT; +LOSA100T3 PO; -METFORMIN; -NAPR500T7 MT; +TIOT18CA3 INH
[2022-01-29 19:41] LABS: HEMATOCRIT. 40.8 % (36.0-48.0); HEMOGLOBIN. 13.6 g/dL (12.0-16.0); MEAN CORPUSCULAR HEMOGLOBIN 26.5 pg (28.0-32.0); MEAN CORPUSCULAR VOLUME 79.5 fL (81.0-99.0); RED BLOOD CELL COUNT 5.14 mill/uL (4.2-5.4); RED CELL DISTRIBUTION WIDTH 14.3 % (11.6-14.6)
[2022-01-29 19:41] LABS: CLARITY URINE CLEAR (CLEAR); COLOR URINE YELLOW (YELLOW); KETONES URINE NEGATIVE (NEGATIVE); LEUKOCYTE ESTERASE URINE NEGATIVE (NEGATIVE); NITRITE URINE NEGATIVE (NEGATIVE); OCCULT BLOOD URINE NEGATIVE (NEGATIVE); PH URINE 7.5 (4.5-8.0); PROTEIN URINE NEGATIVE (NEGATIVE); SPECIFIC GRAVITY URINE 1.012 (1.005-1.030); UROBILINOGEN URINE 0.2 E.U./dL (0.2-1.0)
[2022-01-29 19:49] LABS: CHLORIDE 102 mEq/L (98-107)
[2022-01-29 19:54] LABS: HCG SCREEN NEGATIVE
[2022-01-29 19:55] LABS: MEAN PLATELET VOLUME 8.4 fl (7.4-10.4); PLATELET 254 x1000/uL (130-400)
[2022-01-29 19:56] LABS: PLATELET ESTIMATE NORMAL
[2022-01-29 20:34] VITALS: BP 112/75
== END 2022-01-29 20:20 | disposition home or self-care (01) ==
LOC: ER 13:55
DX: K80.20 Calculus of gallbladder without cholecystitis without obstruction (principal); E11.9 Type 2 diabetes mellitus without complications; I10 Essential (primary) hypertension; Z86.73 Personal history of transient ischemic attack (TIA), and cerebral infarction without residual deficits; Z98.890 Other specified postprocedural states
CPT/HCPCS: 36415; 76700; 80053; 81003; 84703; 85025; 93005; 99285